=== PATIENT | female | born 1940 | race Caucasian/White ===

== ENCOUNTER 2022-08-12 08:11 | Emergency (ER) | payer OTHER ==
[~2022-08-12] VITALS: Ht 152.4 cm; Wt 68.2 kg
[2022-08-12] MEDS ORDERED: GUAI-1313 PO (08:12)
[2022-08-12] MEDS ORDERED: APIX5TAB PO (08:20)
[2022-08-12] MEDS ORDERED: FURO20 PO (08:22)
[2022-08-12] MEDS ORDERED: SACU1TAB7 PO (08:22)
[2022-08-12] MEDS ORDERED: POTA15TA6 PO (08:22)
[2022-08-12] MEDS ORDERED: RUXO5TAB PO (08:22)
[2022-08-12] MEDS ORDERED: AMLO5TAB66 PO (08:22)
[2022-08-12] MEDS ORDERED: OMEG-136 PO (08:22)
[2022-08-12 09:02] LABS: COVID AG,FIA SOURCE NASOPHARYNGEAL
[2022-08-12 09:05] LABS: BASOPHILS % (AUTO) 0.4 % (0.0-2.0); EOSINOPHILS % (AUTO) 1.2 % (1.0-6.0); HEMATOCRIT 45.6 % (36-46); HEMOGLOBIN 15.3 g/dL (12.0-16.0); LYMPHOCYTES # (AUTO) 1.4 K/uL (1.0-4.8); LYMPHOCYTES % (AUTO) 17.5 % (22.0-44.0); MEAN CORPUSCULAR HGB CONC 33.5 G/dL (31.0-37.0); MEAN CORPUSCULAR VOLUME 96 fL (80-100); NEUTROPHILS # (AUTO) 5.6 K/uL (1.8-7.7); NEUTROPHILS % (AUTO) 68.9 % (40.0-70.0); PLATELET COUNT (AUTO) 332 K/uL (150-450); RED BLOOD CELL COUNT(AUTO) 4.77 MIL/uL (4.00-5.20); RED CELL DISTRIBUTION WIDTH 14.9 % (11.5-14.5)
[2022-08-12 09:18] LABS: CALCIUM, TOTAL 9.4 mg/dL (8.8-10.5); CREATININE 1.32 mg/dL (0.60-1.30); POTASSIUM 3.6 mmol/L (3.5-5.1)
[2022-08-12 09:30] LABS: INFLUENZA TYPE A NEGATIVE FOR TYPE A (NEGATIVE); INFLUENZA TYPE B NEGATIVE FOR TYPE B (NEGATIVE)
[2022-08-12 09:31] LABS: C-REACTIVE PROTEIN QUANT 8.24 mg/dL (0.00-0.30)
[2022-08-12 10:10] LABS: ERYTHROCYTE SEDIMENTATION RATE 42 MM/HR (0-20)
[2022-08-12] MEDS ORDERED: IBUP-1492 PO (10:59)
[2022-08-12] MEDS ORDERED: BENZ-227 PO (10:59)
[2022-08-12 11:13] VITALS: BP 137/82
== END 2022-08-12 11:20 | disposition home or self-care (01) ==
LOC: EMS 08:15
DX: J40 Bronchitis, not specified as acute or chronic (principal); M12.9 Arthropathy, unspecified; I48.91 Unspecified atrial fibrillation; I10 Essential (primary) hypertension; Z20.822 Contact with and (suspected) exposure to COVID-19
CPT/HCPCS: 71045; 80048; 85025; 85651; 86140; 87804; 99284; 36415-L1; 36415-TC